=== PATIENT | male | born 1955 ===

== ENCOUNTER → 2021-11-24 | Outpatient (CLI) | payer OTHER ==
[~2021-11-24] MED LIST: IOHEXOL 300 MG/ML 75 ML VIAL. IV ONE
--- NOTE | 2021-11-25 09:18 | RAD ---
EXAM: Abdomen CT with and without intravenous contrast. HISTORY: Renal cyst. TECHNIQUE: Computed tomographic images of the abdomen were obtained prior to and following the admini stration of intravenous contrast. Multiplanar reformatting was performed. *One or more of the following individualized dose reduction techniques were utilized for this examina tion: 1. Automated exposure control. 2. Adjustment of the mA and/or kV according to patient size. 3. Use of iterative reconstruction technique. COMPARISON: None. FINDINGS: Evaluation of the lower thorax demonstrates right middle lobe, lingular and bilateral lower lobe atelectasis or pleural-parenchymal scarring. There is no consolidation, pleural effusion or jer picious pulmonary nodule. There is a small left paramediastinal subpleural bleb. There are 5 mm and 3 mm hypodense lesions within the liver, too small to characterize. The gallbladder is unremarkable. T here is suspected tiny proximal duodenal diverticulum. The spleen is normal in size. The adrenal glan ds are unremarkable. There is no appendicitis. There is no bowel obstruction. There is aortic atheros clerosis. There is no lymphadenopathy. The bladder is unremarkable. There is distal colonic diverticulosis. There is no diverticulitis. Ther e is a tiny fat-containing right inguinal hernia. There are degenerative changes throughout the spine . There is multilevel degenerative listhesis. There are multiple disc protrusions and there is a supe rimposed superior disc extrusion at L5-S1. There is multilevel facet arthropathy and mild scoliosis. The combination of these findings results in central canal and foraminal stenosis at multiple levels. There is a partially exophytic 4.1 cm simple cyst within the inferior lateral left kidney with small lobulated cystic component. There is a 1.1 cm partially exophytic hypodense lesion within the posteri or mid zone of the left kidney which demonstrate attenuation of 19 Hounsfield units on precontrast im ages and 29 Hounsfield units on postcontrast images. There is a 5 mm partially exophytic simple corti jhoan cyst within the lower pole the right kidney. There is adjacent nodularity along the inferior righ t renal 4 cortex which appears to be physiologic. No solid lesion is seen in this location. There is no hydronephrosis. There is no nephrolithiasis. IMPRESSION: 1. 1.1 cm hypointense lesion within the posterior mid zone of the left kidney which demonstrates slig ht enhancement between precontrast and postcontrast images, possibly due to volume averaging of an en hancing cyst wall or septation rather than solid mural component. The differential includes a solid l esion as well as complicated cystic lesion. Short-term imaging follow-up is recommended. 2. 4.1 cm cyst within the left kidney and a 5 mm cyst within the right kidney. 3. Colonic diverticulosis. Electronically signed by: Melani Rico MD (11/25/2021 9:15 AM) [id number]
== END ==
LOC: CT 16:36
PROVIDERS: ATTEND Specialist
DX: N28.1 Cyst of kidney, acquired (principal); R93.41 Abnormal radiologic findings on diagnostic imaging of renal pelvis, ureter, or bladder; K57.30 Diverticulosis of large intestine without perforation or abscess without bleeding; K40.90 Unilateral inguinal hernia, without obstruction or gangrene, not specified as recurrent; N28.9 Disorder of kidney and ureter, unspecified; I70.0 Atherosclerosis of aorta; M47.816 Spondylosis without myelopathy or radiculopathy, lumbar region; M51.27 Other intervertebral disc displacement, lumbosacral region; M48.061 Spinal stenosis, lumbar region without neurogenic claudication
CPT/HCPCS: 74170; Q9967